=== PATIENT | female | born 1955 | race Caucasian/White ===

== ENCOUNTER 2021-08-24 07:33 | Emergency (ER) | payer OTHER, MEDICARE, SELFPAY ==
[2021-08-24 07:39] VITALS: BP 150/85; PULSE 54; RESP 16; TEMP 36.6; O2SAT 93; BMI 22.6
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
--- NOTE | 2021-08-24 07:45 | ECG_ITS ---
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 Measurements Intervals [place] Rate: 74 P: 57 [place]: 145 QRS: 44 QRSD: 85 T: 32 QT: 395 QTc: 438 Interpretive Statements SINUS RHYTHM WITH SINUS ARRHYTHMIA POSSIBLE INFERIOR MYOCARDIAL INFARCTION , PROBABLY OLD [30 ms Q WAVE IN II/aVF] No previous ECG available for comparison Electronically Signed On 08-24-2021 22:45:30 CDT by Rufino Mckeon M.D. [id number]
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
[2021-08-24 07:48] VITALS: BP 150/85; PULSE 65; O2SAT 96
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
[2021-08-24 08:07] LABS: Basophils % 0.2 %; Eosinophils % 0.4 %; Hematocrit 41.7 % (37.0-47.0); Hemoglobin 13.5 g/dL (11.5-15.3); Lymphocytes # 1.8 10^3/uL (0.8-4.8); Lymphocytes % 19.7 %; Mean Corpuscular HGB Conc 32.4 g/dL (30.0-36.0); Mean Corpuscular Volume 92.7 fl (81-99); Mean Platelet Volume 10.6 fL (7.4-10.4); Monocytes # 0.5 10^3/uL (0.2-0.9); Monocytes % 4.8 %; Neutrophils # 6.81 10^3/uL (1.8-7.7); Neutrophils % 73.4 %; Nucleated Red Blood Cells % 0 %; Platelet Count 170 10^3/cmm (130-400); Red Cell Distribution Width 12.8 % (12.1-15.1); White Blood Count 9.3 10^3/uL (4.0-10.0)
[2021-08-24] MEDS: iodixanol 320 mg/mL 100mL Btl IV (08:10)
[2021-08-24 08:25] LABS: Alanine Aminotransferase 93 U/L (0-33); Albumin Level 3.9 g/dL (3.5-5.2); Alkaline Phosphatase 62 IU/L (35-105); Aspartate Amino Transferase 170 U/L (0-32); Blood Urea Nitrogen 15 mg/dL (8-23); Calcium 8.6 mg/dL (8.5-10.5); Carbon Dioxide 27 mmol/L (22-29); Chloride 102 mmol/L (98-107); Creatinine Clr Calc Pharmacy 65.6924; Globulin 2.6 g/dL (1.3-4.6); Glomerular Filtration Rate 99.7 mL/min (90-130); Glucose 136 mg/dL (65-115); Lipase 78 U/L (13-60); Osmolality Calculated 289 mOsm/kg (285-295); Sodium 138 mmol/L (136-145); Total Bilirubin 0.3 mg/dL (0.15-1.2); Total Protein 6.5 g/dL (6.6-8.7)
[2021-08-24 08:29] LABS: Alcohol Level < 10 mg/dL (0-10)
[2021-08-24 09:10] VITALS: BP 119/78; PULSE 78; RESP 16; O2SAT 96
[2021-08-24 09:14] LABS: Bilirubin Urine Neg (Negative); Blood Urine 3+ (Negative); Glucose Urine UA Norm (Normal); Ketones Urine Negative (Negative); Nitrate Urine Negative (Negative); Protein Urine 1+ (Negative); Specific Gravity, Urine 1.005 (1.005-1.030); Urine Appearance Bloody (CLEAR); Urine Color Red (Yellow); pH Urine 8 (5-7)
[2021-08-24 09:15] LABS: Add Urine Culture? No; Bacteria Urine TRACE /hpf; Leukocyte Esterase Urine Negative (Negative); RBC Urine >100 /hpf (0-2); Sulfosalicylic Acid Urine Negative (Negative); Urobilinogen Urine Norm (Negative)
[2021-08-24 10:26] VITALS: BP 118/79; PULSE 78; RESP 14; O2SAT 93
== END 2021-08-24 10:32 | disposition short-term general hospital (02) ==
PROVIDERS: Emergency Provider Family Medicine
DX: Z04.1 Encounter for examination and observation following transport accident (principal); V89.2XXA Person injured in unspecified motor-vehicle accident, traffic, initial encounter
CPT/HCPCS: 70450; 71045; 71260; 72125; 74177; 80053; 80307; 81001; 83690; 85025; 87086; 93005; 99283; Q9967

== ENCOUNTER → 2022-09-27 12:08 | Outpatient (BNVA) | payer MEDICARE, SELFPAY | PROVIDERS: Visit Provider Emergency Medicine | DX: R50.9 Fever, unspecified (principal); J10.1 Influenza due to other identified influenza virus with other respiratory manifestations; J02.0 Streptococcal pharyngitis; J44.9 Chronic obstructive pulmonary disease, unspecified | CPT/HCPCS: 87400; 87880 ==